=== PATIENT | female | born 1955 | race Caucasian/White ===

== ENCOUNTER 2017-02-03 16:10 | Emergency (ER) | payer OTHER ==
[2017-02-03 16:53] VITALS: BP 124/66
--- NOTE | 2017-02-03 17:18 | UC ---
Avila Chester Benjamin, scribed for Joao Douglas MD on 02/03/17 at 1709 . Respiratory Complaint HPI - HPI Summary HPI Summary: 61yo female c/o cold like symptoms, including chest congestion and nonproductive cough. Pt denies any sinus pressure or wheezing. Pts had recent ear infection and was rx abx. Pt also recent returns from a trip to [place]. PMHx of HTN. - History of Current Complaint Chief Complaint: UCRespiratory Stated Complaint: COUGH,COLD-TYPE SYMPTOMS Time Seen by Provider: 02/03/17 17:02 Hx Obtained From: Patient Onset/Duration: Gradual Onset, Lasting Days, Still Present Severity Initially: Mild Severity Currently: Mild Pain Intensity: 0 Pain Scale Used: 0-10 Numeric Character: Cough: Nonproductive Aggravating Factors: Nothing Alleviating Factors: Nothing Associated Signs And Symptoms: Positive: URI. Negative: Wheezing - Allergies/Home Medications Allergies/Adverse Reactions: Allergies Allergy/AdvReac Type Severity Reaction Status Date / Time No Known Allergies Allergy Verified 02/03/17 16:53 Home Medications: Home Medications Lisinopril & Hydrochlorothiazi [Zestoretic 20-12.5 mg-] 02/03/17 [History Confirmed 02/03/17] PMH/Surg Hx/FS Hx/Imm Hx Cardiovascular History: Hypertension - Surgical History Surgical History: Yes Surgery Procedure, Year, and Place: CONIZATION- 30 YRS AGO FOR CERVICAL CANCER. 1983 , [place]. TONSIL OUT A CHILD. 2004 COLONOSCOPY, [facility] [place]. 2011 LEFT LEG VARICOSE VEIN SURGERY, [facility] [place] - Family History Known Family History: Positive: Diabetes Negative: Hypertension - Social History Occupation: Employed Full-time Lives: With Family Alcohol Use: Occasionally Substance Use Type: None Smoking Status (MU): Never Smoked Tobacco Review of Systems Constitutional: Negative Skin: Negative Eyes: Negative ENT: Negative Respiratory: Cough, Other - chest congestion Cardiovascular: Negative Gastrointestinal: Negative Genitourinary: Negative Motor: Negative Neurovascular: Negative Musculoskeletal: Negative Neurological: Negative Psychological: Negative All Other Systems Reviewed And Are Negative: Yes Physical Exam Triage Information Reviewed: Yes Appearance: Well-Appearing, No Pain Distress, Well-Nourished Vital Signs: Initial Vital Signs Temp 97.4 F 02/03/17 16:49 Pulse 67 02/03/17 16:49 Resp 12 02/03/17 16:49 BP 124/66 02/03/17 16:49 Pulse Ox 98 02/03/17 16:49 Eye Exam: Normal Eyes: Positive: Conjunctiva Clear ENT: Positive: Normal ENT inspection, Hearing grossly normal Neck: Positive: Supple, Nontender Respiratory: Positive: Lungs clear, Normal breath sounds, No respiratory distress, Other: - loose cough Cardiovascular: Positive: RRR, No Murmur Abdomen Description: Positive: Nontender, Soft Bowel Sounds: Positive: Present Musculoskeletal: Positive: Strength Intact, ROM Intact Neurological: Positive: Muscle Tone Normal Psychological: Positive: Age Appropriate Behavior Skin: Negative: rashes UC Diagnostic Evaluation - Laboratory O2 Sat by Pulse Oximetry: 98 Respiratory Course/Dx - Course Course Of Treatment: Reviewed pts medication and allergy lists. Blood pressure noted. - Differential Dx/Diagnosis Provider Diagnoses: Bronchitis Discharge - Discharge Plan Condition: Stable Disposition: HOME Prescriptions: Azithromyxin KEVIN (NF) [Z-Kevin (Zithromax) 250 mg tabs #6] 2 tab PO .TODAY, THEN 1 DAILY #6 tab Patient Education Materials: Acute Bronchitis (ED) Referrals: Anita Mejía MD [Primary Care Provider] - Additional Instructions: FOLLOW UP WITH YOUR DOCTOR. GET FOR ANY WORSENING OF YOUR CONDITION OR QUESTIONS OR CONCERNS. The documentation as recorded by the Avila dyson Benjamin accurately reflects the service I personally performed and the decisions made by , Joao Douglas MD.
== END 2017-02-03 17:10 | disposition home or self-care (01) ==
LOC: UCEAST 16:10
DX: J40 Bronchitis, not specified as acute or chronic (principal); I10 Essential (primary) hypertension
CPT/HCPCS: 99212; G0463

== ENCOUNTER 2019-01-15 18:16 | Emergency (ER) | payer OTHER ==
[2019-01-15 18:32] VITALS: BP 129/56
--- NOTE | 2019-01-15 19:01 | UC ---
Respiratory Complaint HPI - HPI Summary HPI Summary: 63 yo female with mild uri symptoms x 1 weeks now with eye irritation and d.c x 2 days has to pry eyes open in AM wears contacts no photophobia or pain - History of Current Complaint Chief Complaint: UCRespiratory Stated Complaint: SINUS CONGESTION Time Seen by Provider: 01/15/19 18:44 Hx Obtained From: Patient Onset/Duration: Sudden Onset, Lasting Days Timing: Constant Severity Initially: Mild Severity Currently: Moderate Pain Intensity: 0 Pain Scale Used: 0-10 Numeric Character: Cough: Nonproductive Aggravating Factors: Nothing Alleviating Factors: Nothing Associated Signs And Symptoms: Positive: Nasal Congestion, Sinus Discomfort - Allergies/Home Medications Allergies/Adverse Reactions: Allergies Allergy/AdvReac Type Severity Reaction Status Date / Time No Known Allergies Allergy Verified 01/15/19 18:32 Home Medications: Home Medications Cetirizine* [ZyrTEC 10 MG TAB*] 10 mg PO DAILY 01/15/19 [History Confirmed 01/15] PMH/Surg Hx/FS Hx/Imm Hx Previously Healthy: Yes Cardiovascular History: Hypertension - Surgical History Surgical History: Yes Surgery Procedure, Year, and Place: CONIZATION- 30 YRS AGO FOR CERVICAL CANCER. 1983 , [place]. TONSIL OUT A CHILD. 2004 COLONOSCOPY, [facility] [place]. 2011 LEFT LEG VARICOSE VEIN SURGERY, [facility] [place] - Family History Known Family History: Positive: Hypertension, Diabetes - Social History Alcohol Use: Occasionally Substance Use Type: None Smoking Status (MU): Former Smoker When Did the Patient Quit Smoking/Using Tobacco: 34 years ago Review of Systems All Other Systems Reviewed And Are Negative: Yes Constitutional: Positive: Negative Skin: Positive: Negative Eyes: Positive: Drainage, Eye Redness ENT: Positive: Nasal Discharge, Sinus Congestion, Sinus Pain/Tenderness Respiratory: Positive: Cough Cardiovascular: Positive: Negative Gastrointestinal: Positive: Negative Genitourinary: Positive: Negative Motor: Positive: Negative Neurovascular: Positive: Negative Musculoskeletal: Positive: Negative Neurological: Positive: Negative Psychological: Positive: Negative Physical Exam Triage Information Reviewed: Yes Appearance: Well-Appearing, No Pain Distress, Well-Nourished Vital Signs: Initial Vital Signs Temp 98.2 F 01/15/19 18:26 Pulse 68 01/15/19 18:26 Resp 12 01/15/19 18:26 BP 129/56 01/15/19 18:26 Pulse Ox 99 01/15/19 18:26 Eyes: Positive: Conjunctiva Inflamed, Discharge ENT: Positive: Nasal congestion, TMs normal, Uvula midline. Negative: Hearing grossly normal - bilat hearing aids, Nasal drainage, Tonsillar swelling, Tonsillar exudate, Trismus, Muffled voice, Hoarse voice, Dental tenderness, Sinus tenderness Dental: Negative: Abscess @ Neck: Positive: Supple Respiratory: Positive: Lungs clear, Normal breath sounds, No respiratory distress, No accessory muscle use Cardiovascular: Positive: RRR, No Murmur Musculoskeletal: Positive: ROM Intact, No Edema Neurological: Positive: Alert Psychological Exam: Normal Skin Exam: Normal Respiratory Course/Dx - Differential Dx/Diagnosis Provider Diagnosis: Viral URI, Bilateral conjunctivitis Discharge - Sign-Out/Discharge Documenting (check all that apply): Patient Departure All imaging exams completed and their final reports reviewed: No Studies - Discharge Plan Condition: Stable Disposition: HOME Prescriptions: Polymyx/Trimethoprim OPTH* [Polytrim OPHTH*] 1 - 2 drop BOTH EYES QID #1 btl Patient Education Materials: Conjunctivitis (ED) Referrals: Anita Mejía MD [Primary Care Provider] - If Needed Additional Instructions: I suggest no contact lens use for about a week recheck CAROL for eye pain/light sensitivity I suggest you also use ZADITOR eye drops OTC - Billing Disposition and Condition Condition: STABLE Disposition: Home
== END 2019-01-15 19:05 | disposition home or self-care (01) ==
LOC: UCEAST 18:16
DX: H10.9 Unspecified conjunctivitis (principal); J06.9 Acute upper respiratory infection, unspecified; I10 Essential (primary) hypertension; Z87.891 Personal history of nicotine dependence
CPT/HCPCS: 99212; G0463